=== PATIENT | female | born 1985 | race Caucasian/White ===

== ENCOUNTER → 2016-09-11 | Outpatient (CLI) | payer BC ==
--- NOTE | 2016-09-11 14:54 | Diagnostic Imaging Report ---
PROCEDURE: CT of the abdomen with and without contrast and CT of the pelvis with contrast. TECHNIQUE: Precontrast acquisitions were acquired through the abdomen. Multiple contiguous axial images were obtained through the abdomen and pelvis after administration of intravenous contrast. INDICATION: Abdominal pain, feeling bloated and constipated. COMPARISON STUDY: Abdominal ultrasound from 2012. FINDINGS: The lung bases are clear. The liver, gallbladder, spleen, pancreas, adrenal glands and kidneys appear normal. The appendix is not identified. No inflammatory changes are seen in this region. Trace amount of free fluid is present in the cul-de-sac, which is probably physiological. There is a 17 mm right ovarian cyst. A tiny left ovarian cyst is present. There is a [id number] amount of stool in the colon. Small bowel loops appear normal. No free air or loculated fluid collections are present. There are no hernias. Bone windows demonstrate a disc bulge at L5-S1. IMPRESSION: 1. There is a 17 mm right ovarian cyst with a small amount of free fluid in the pelvis. 2. Constipation. 3. There is mild disc bulge at L5-S1. Dictated by: Dictated on workstation # [id number]
== END ==
LOC: RAD 13:19
PROVIDERS: ATTEND Family Medicine
DX: R10.84 Generalized abdominal pain (principal); N83.201 Unspecified ovarian cyst, right side; K59.00 Constipation, unspecified
CPT/HCPCS: 74178; Q9967